=== PATIENT | male | born 1975 ===

== ENCOUNTER 2017-02-09 12:13 | Emergency (ER) | payer OTHER ==
--- NOTE | 2017-02-09 14:12 | UC ---
Headache HPI - HPI Summary HPI Summary: Pt gets HAs frequently, 1-5 times per week, they usually respond well to ibuprofen or tylenol. HAs frequently are brought on by acute stress, heavy reading, heavy screen use, and poor sleep. Feels he has been under stress lately and is feeling a lot of tension in his jaw -- he also grinds teeth in his sleep. 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 Today woke with bad ADAMSON and lots of nausea which is not typical. Took 400mg ibuprofen and now pain is almost gone, no nausea. Pt is not concerned but partner is worried that he needs a scan. - History Of Current Complaint Chief Complaint: UCGI Stated Complaint: NAUSEOUS Time Seen by Provider: 02/09/17 13:36 Hx Obtained From: Patient Onset/Duration: Gradual Onset, Lasting Hours Onset Of Symptoms: Gradual Currently Pain Is: Current Pain Scale(0-10)= - 1 Timing: Constant Character: Dull, Throbbing, Typical Headache Location of Headache: Diffuse, Occipital Aggravating Factor: Bright Lights Allevating Factors: Medication Associated Signs And Symptoms: Positive: Nausea. Negative: Dizziness, Seizure, Vomiting, Sinus Pressure, Fever, Neck Stiffness, Decreased LOC, Visual Changes - Allergies/Home Medications Allergies/Adverse Reactions: Allergies Allergy/AdvReac Type Severity Reaction Status Date / Time No Known Allergies Allergy Verified 02/09/17 13:23 Home Medications: Home Medications Ibuprofen [Advil] 400 mg PO 02/09/17 [History] PMH/Surg Hx/FS Hx/Imm Hx Endocrine History Of: Denies: Diabetes, Thyroid Disease Cardiovascular History Of: Denies: Cardiac Disorders, Hypertension Respiratory History Of: Denies: COPD, Asthma GI/ History Of: Denies: Ulcer - Surgical History Surgical History: None - Family History Known Family History: Positive: Other - father sudden age 65, cause unknown - Social History Occupation: Employed Full-time Lives: With Family Alcohol Use: None Substance Use Type: None Smoking Status (MU): Never Smoked Tobacco Review of Systems Constitutional: Negative Skin: Negative Eyes: Negative ENT: Negative Respiratory: Negative Cardiovascular: Negative Gastrointestinal: Negative Genitourinary: Negative Motor: Negative Neurovascular: Negative Musculoskeletal: Negative Neurological: Headache Psychological: Negative All Other Systems Reviewed And Are Negative: Yes Physical Exam Triage Information Reviewed: Yes Appearance: Well-Appearing, No Pain Distress Vital Signs: Initial Vital Signs Temp 97.6 F 02/09/17 13:17 Pulse 76 02/09/17 13:17 Resp 18 02/09/17 13:17 BP 136/68 02/09/17 13:17 Pulse Ox 99 02/09/17 13:17 Vital Signs Reviewed: Yes Eye Exam: Normal, Other - PERRL EOM-I Eyes: Positive: Conjunctiva Clear ENT Exam: Normal ENT: Positive: Normal ENT inspection, Hearing grossly normal, Pharynx normal, TMs normal Dental Exam: Normal Neck exam: Normal Neck: Positive: Supple, Nontender, No Lymphadenopathy Respiratory Exam: Normal Respiratory: Positive: Chest non-tender, Lungs clear, Normal breath sounds, No respiratory distress, No accessory muscle use Cardiovascular Exam: Normal Cardiovascular: Positive: RRR, No Murmur Abdominal Exam: Other - exam limited by obesity Abdomen Description: Positive: Nontender, No Organomegaly, Soft. Negative: CVA Tenderness (R), CVA Tenderness (L), Distended, Guarding Musculoskeletal Exam: Normal Neurological Exam: Normal Neurological: Positive: Alert Psychological Exam: Normal Skin Exam: Normal Headache Course/Dx - Differential Dx/Diagnosis Provider Diagnoses: tension ADAMSON Discharge - Discharge Plan Condition: Stable Disposition: HOME Prescriptions: Cyclobenzaprine TAB* [Flexeril 10 MG TAB*] 5 - 10 mg PO BEDTIME #5 tab Patient Education Materials: Tension Headache (ED) Referrals: [facility] [Outside] Additional Instructions: As we discussed, there is nothing acutely worrisome today about this headache ( especially since it is basically resolved). 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 Please see your primary care provider in [place] and/or connect with a provider up here to discuss your headache pattern, quality, and frequency. Make sure you are getting at least 8 hours of sleep every night, 30 minutes of exercise every day, and regular, nutritious meals. I encourage you to look into mindfulness or relaxation exercises at bedtime to try to prevent jaw clenching.
== END 2017-02-09 14:30 | disposition home or self-care (01) ==
LOC: UCEAST 12:13
DX: G44.209 Tension-type headache, unspecified, not intractable (principal)
CPT/HCPCS: 99202; G0463